=== PATIENT | male | born 1985 | race African-American/Black ===

== ENCOUNTER 2016-10-19 02:45 | Emergency (ER) | payer MEDICAID ==
[~2016-10-19] VITALS: Ht 170.2 cm; Wt 73.0 kg
[2016-10-19] MEDS ORDERED: HYDROCODONE/ACETAMINOPHEN 5/325MG TABLET PO ONE (06:15)
[2016-10-19] MEDS ORDERED: ONDANSETRON 4MG ODT PO ONE (06:15)
[2016-10-19 07:39] VITALS: BP 118/80
== END 2016-10-19 08:56 | disposition home or self-care (01) ==
LOC: ER 08:48
DX: S92.902A Unspecified fracture of left foot, initial encounter for closed fracture (principal); F17.200 Nicotine dependence, unspecified, uncomplicated; G43.909 Migraine, unspecified, not intractable, without status migrainosus; W10.8XXA Fall (on) (from) other stairs and steps, initial encounter; Y93.01 Activity, walking, marching and hiking; Y99.8 Other external cause status; Y92.89 Other specified places as the place of occurrence of the external cause
CPT/HCPCS: 29515; 73630; 99284; Q0162; Z7610

== ENCOUNTER 2019-11-10 20:25 | Emergency (ER) | payer MEDICAID, OTHER ==
[~2019-11-10] VITALS: Ht 175.3 cm; Wt 70.0 kg
[2019-11-10] MEDS ORDERED: TETANUS, DIPHTHERIA, PERTUSSIS VAC/PF 0.5ML (>7YR OLD) IM ONE (21:00)
[2019-11-10] MEDS ORDERED: LIDOCAINE 1%/EPI 1:100,000 10 ML VIAL IJ ONE (21:00)
[2019-11-10] MEDS ORDERED: BACITRACIN ZINC OINT UDPKT TOP ONE (21:00)
[2019-11-10] MEDS ORDERED: HYDROCODONE/ACETAMINOPHEN 10/325MG TABLET PO ONE (21:00)
[2019-11-10 21:44] VITALS: BP 120/79
== END 2019-11-10 22:50 | disposition home or self-care (01) ==
LOC: ER 20:25
DX: S51.811A Laceration without foreign body of right forearm, initial encounter (principal); F17.200 Nicotine dependence, unspecified, uncomplicated; W34.09XA Accidental discharge from other specified firearms, initial encounter; Y93.89 Activity, other specified; Y92.89 Other specified places as the place of occurrence of the external cause; Y99.8 Other external cause status
CPT/HCPCS: 12002; 73080; 73090; 90471; 90715; 99284; J3490

== ENCOUNTER 2019-11-13 12:39 | Emergency (ER) | payer OTHER ==
[~2019-11-13] VITALS: Ht 170.2 cm; Wt 77.0 kg
[2019-11-13 12:43] VITALS: BP 116/79
== END 2019-11-13 13:20 | disposition home or self-care (01) ==
LOC: ER 12:39
DX: S51.831D Puncture wound without foreign body of right forearm, subsequent encounter (principal); Z48.00 Encounter for change or removal of nonsurgical wound dressing; W34.00XD Accidental discharge from unspecified firearms or gun, subsequent encounter
CPT/HCPCS: 99281

== ENCOUNTER 2019-11-23 11:53 | Emergency (ER) | payer OTHER ==
[~2019-11-23] VITALS: Ht 170.2 cm; Wt 77.0 kg
[2019-11-23 12:13] VITALS: BP 100/65
== END 2019-11-23 13:04 | disposition home or self-care (01) ==
LOC: ER 11:53
DX: Z48.02 Encounter for removal of sutures (principal)
CPT/HCPCS: 99281